=== PATIENT | female | born 1955 | race African-American/Black ===

== ENCOUNTER 2018-03-26 15:23 | Emergency (ER) | payer MEDICAID ==
[2018-03-26] MEDS ORDERED: IBUPROFEN 600 MG TABLET PO ONE (18:15)
[2018-03-26] MEDS ORDERED: ALPRAZOLAM 0.5 MG TABLET PO ONE (18:15)
--- NOTE | 2018-03-26 18:21 | ER Document Report ---
HPI - HPI Time Seen by Provider: 03/26/18 18:07 Pain Level: Denies Notes: Patient is a 62-year-old female who presents to the emergency department with chief complaint of anxiety attack. Patient reports past medical history of anxiety, states her Medicaid just became active in [place]. Patient reports she used to take Xanax 0.5 mg as needed for anxiety. States that her son is here as a psych patient and this is causing her much distress and anxiety. Patient was initially offered an EKG by the [facility] nurse which patient declined. This was discussed again as patient states that she feels she like she is having palpitations and patient adamantly declines the EKG stating this feels just like an anxiety attack has in the past. Past Medical History - General Information source: Patient - Social History Smoking Status: Never Smoker Frequency of alcohol use: None Drug Abuse: None Family History: Reviewed & Not Pertinent - Past Medical History Cardiac Medical History: Reports: Hx Hypercholesterolemia, Hx Hypertension Psychiatric Medical History: Reports: Hx Anxiety Surgical Hx: Negative Vertical Provider Document - CONSTITUTIONAL Notes: PHYSICAL EXAMINATION: GENERAL: Well-appearing, well-nourished and in no acute distress. HEAD: Atraumatic, normocephalic. EYES: Pupils equal round extraocular movements intact, conjunctiva are normal. ENT: Nares patent NECK: Normal range of motion LUNGS: No respiratory distress Musculoskeletal: Normal range of motion NEUROLOGICAL: Normal speech, normal gait. PSYCH: Anxious SKIN: Warm, Dry, normal turgor, no rashes or lesions noted. - INFECTION CONTROL TRAVEL OUTSIDE OF THE [place] IN LAST 30 DAYS: No Course - Re-evaluation Re-evalutation: Patient does have what appears to be an acute anxiety attack. Patient is very nervous about her son's health condition as she states he has bipolar and has been off of his medications and is currently in the same department for a psych eval. Patient states she has not had any of her medications since January to include not only her anxiety medication but also her antihypertensives and cholesterol medication. I discussed with the patient that I will refill her blood pressure medication and cholesterol medication. I discussed with the patient that we do not refill chronic controlled substances however I will give her a 2-day supply of Xanax. I emphasized with the patient that the emergency department will not refill this again. Patient verbalizes understanding and is thankful for this refill at this time. Discharge - Discharge Clinical Impression: Anxiety Condition: Stable Disposition: HOME, SELF-CARE Instructions: Anxiety ([facility]) Additional Instructions: Anxiety The physician feels that some of your health problems are being caused by anxiety. Anxiety affects your health in many ways. Anxiety alone can cause pal pitations, sweats, chest pains, abdominal pains, shortness of breath, and headaches. It contributes to ulcer disease, high blood pressure, irritable bowel syndrome, and has been shown to cause flare-ups of many other diseases. Anxiety is not a simple disorder to treat. If the anxiety is due to recent life stresses, you may simply need time to "work through" the changes. If the anxiety is due to an underlying unhappiness with yourself or due to psychiatric disturbance, professional help will be needed. Your physician can refer you for further help if needed. Anti-anxiety medication is occasionally given if the stress is acute or if you are having trouble sleeping. Chronic or frequent use of these medications is not a good idea because the body becomes reliant on it, preventing you from dealing with life's normal stresses. Your seen today for an episode of anxiety. I did refill your Xanax for a total of 6 tablets. We will not refill this medication again as it is a controlled substance. You must establish care with a primary care provider and/or mental health provider for any further requests for refills. I did provide a refill as well for your blood pressure medication and your cholesterol medication. Please take these as prescribed. Prescriptions: Simvastatin 20 mg PO QHS #30 tablet Alprazolam [Xanax] 0.5 mg PO TID PRN #6 tablet PRN Reason: Anxiety Hydroxyzine HCl [Atarax 25 mg Tablet] 1 - 2 tab PO QID #25 tablet Nifedipine [Procardia Xl] 30 mg PO DAILY #30 tab.[id number]
[2018-03-26 18:46] VITALS: BP 150/91
== END 2018-03-26 18:45 | disposition home or self-care (01) ==
LOC: ER 15:23
DX: F41.8 Other specified anxiety disorders (principal); E78.00 Pure hypercholesterolemia, unspecified; I10 Essential (primary) hypertension
CPT/HCPCS: 99283; J3490 ×2